=== PATIENT | female | born 1995 | race Caucasian/White ===

== ENCOUNTER 2018-08-29 22:46 | Emergency (ER) | payer SELFPAY ==
[~2018-08-29] VITALS: Ht 167.6 cm; Wt 100.0 kg
[2018-08-29 22:52] VITALS: Ht 167.6 cm; Wt 100.0 kg
[2018-08-29 23:39] LABS: UDS - AMPHET NEGATIVE QUAL (NEGATIVE); UDS - BARB NEGATIVE QUAL (NEGATIVE); UDS - BENZO NEGATIVE QUAL (NEGATIVE); UDS - COCAINE NEGATIVE QUAL (NEGATIVE); UDS - OPIATE NEGATIVE QUAL (NEGATIVE); UDS - PCP NEGATIVE QUAL (NEGATIVE); UDS - THC NEGATIVE QUAL (NEGATIVE)
[2018-08-29 23:47] LABS: HCG URINE NEGATIVE (NEGATIVE)
[2018-08-29 23:48] LABS: APPEARANCE HAZY (CLEAR); BILIRUBIN NEGATIVE (NEGATIVE); COLOR YELLOW (YELLOW); GLUCOSE NEGATIVE (NEGATIVE); KETONE NEGATIVE (NEGATIVE); NITRITE NEGATIVE (NEGATIVE); PROTEIN NEGATIVE (NEGATIVE); UROBILINOGEN NORMAL (NORMAL)
[2018-08-29 23:49] LABS: BACTERIA MODERATE /hpf (NONE SEEN); EPITHELIAL CELLS 0-5 /hpf (0-5); RED CELLS - URINE 0-5 /hpf (0-5)
[2018-08-30 00:21] LABS: ALKALINE PHOSPHATASE 64 U/L (46-116); ALT (SGPT) 14 U/L (10-68); BILIRUBIN - TOTAL 0.17 mg/dL (0.2-1.3); CALC OSMOLALITY 282 mosm/kg (275-300); CALCIUM 9.1 mg/dL (8.5-10.1); CARBON DIOXIDE 26.7 mmol/L (21.0-32.0); CHLORIDE - SERUM 105 mmol/L (98-107); CREATININE - SERUM 0.7 mg/dL (0.6-1.3); GLUCOSE 90 mg/dL (74-106); POTASSIUM - SERUM 3.3 mmol/L (3.5-5.1); SODIUM 142 mmol/L (136-145); UREA NITROGEN 12 mg/dL (7-18); eGFR NON AFRICAN AMERICAN > 90 mL/min (90-120)
[2018-08-30 00:22] LABS: HEMATOCRIT 37.3 % (36.0-48.0); HEMOGLOBIN 12.3 g/dL (12-16); LYMPHOCYTES 23.3 % (15-50); MCH 29.2 pg (26.0-34.0); MCV 88.6 fL (80.0-100.0); MEAN PLATELET VOLUME 9.3 fL (7.4-10.4); NEUTROPHILS 69.4 % (40-80); PLATELET COUNT 317 10x3/uL (130-400); RBC 4.21 10x6/uL (4.00-5.40); RDW 12.2 % (11.5-14.5); WBC 12.1 10x3/uL (4.8-10.8)
[2018-08-30] MEDS ORDERED: MACROBID100 MG PO (00:33)
[2018-08-30] MEDS ORDERED: K-DUR20 MEQ PO (00:57)
[2018-08-30 01:13] VITALS: BP 131/79
== END 2018-08-30 01:14 | disposition home or self-care (01) ==
LOC: D.ER 22:46
PROVIDERS: Emergency Medicine
DX: R51 Headache (principal); R41.0 Disorientation, unspecified; E87.6 Hypokalemia; N39.0 Urinary tract infection, site not specified; G40.909 Epilepsy, unspecified, not intractable, without status epilepticus